=== PATIENT | female | born 1990 | race Caucasian/White ===

== ENCOUNTER → 2017-09-30 13:37 | Outpatient (CLI) | payer BC ==
[~2017-09-30 13:37] MED LIST: ACETAMINOPHEN500 M1 PO; PHENAZOPYRIDIN100 MG PO; PROZAC20 MG PO; SPRINTEC1 TAB PO
[2017-12-01 18:29] VITALS: BMI 41.8
== END | disposition home or self-care (01) ==
LOC: D.CT 13:37
DX: R10.9 Unspecified abdominal pain (principal); D72.829 Elevated white blood cell count, unspecified

== ENCOUNTER 2017-12-01 13:28 | Inpatient (IN) | payer BC ==
[~2017-12-01] VITALS: Ht 157.5 cm; Wt 103.6 kg
--- NOTE | ~2017-12-01 | OP ---
PATIENT NAME: ЮЛИЯ PRATT MEDICAL RECORD: [id number] :88 LOCATION:D.M2 D.2113 ADMISSION DATE:12/01/17 SURGEON: LARON DAWSON MD DATE OF OPERATION: 12/01/2017 SURGEON: Laron Dawson MD ANESTHESIA: General anesthesia. ANESTHESIOLOGIST: Mynor Babin CRNA. PREOPERATIVE DIAGNOSIS: Right distal ureteral 4 mm stone. POSTOPERATIVE DIAGNOSIS: Right distal ureteral 4 mm stone. PROCEDURES: Cystoscopy, right retrograde pyelogram, right ureteroscopy and stone extraction, right ureteral stent insertion 6-Austrian x 22 cm with string attached. FINDINGS: Right distal ureteral 4 mm stone. BLOOD LOSS: None. CLINICAL HISTORY: This is a 27-year-old female who has no prior history of kidney stones. She developed right renal colic 4 days ago. She went to the Emergency Room at [facility] and a CT scan was performed. This showed a 4-mm stone lodged in the right UV junction causing proximal hydroureteronephrosis. She was admitted for pain control and now she will be having a right ureteral stone extraction. SHE IS ALLERGIC TO IODINE AND CODEINE. Because of her ALLERGY TO IODINE-BASED SUBSTANCES, we prepped her with castile soap. PROCEDURE IN DETAIL: The patient was given 2 grams Ancef IV occupational health physician to the OR. She was then given general anesthetic and then placed in the dorsal lithotomy position. She was prepped and draped. Fluoroscopy did not reveal any radiodense stones. Going into the bladder, the right ureteral orifice was quite inflamed due to lodged stone. Left ureteral orifice is normal. No bladder tumors were seen. An open-ended ureteral catheter was inserted into the right ureteral orifice and diluted contrast was used for retrograde pyelogram. There was severe hydroureteronephrosis all the way down to the UV junction. However, the stone itself could still not be seen very clearly. Through the lumen of the open-ended ureteral catheter, we inserted a Sensor wire up into the renal pelvis. Once the wire was in place, we removed the ureteral catheter entirely. Over the wire, we placed a UroMax 18-Austrian 4 cm long ureteral dilation balloon. We tried to inflate the balloon. The balloon was ruptured by the impacted stone. However, the balloon had managed to dilate the ureteral orifice sufficiently for our purposes. The balloon was entirely removed. The cystoscope was then removed leaving the guidewire in place. We used a rigid ureteroscope and going adjacent to the wire, just in the intramural portion of the ureter, we identified the stone. A 1.9-Austrian 4-wire 0-tip basket was placed around the stone and the stone was entirely removed. It will be sent to pathology for stone analysis. I did perform ureteroscopy up to the ureteropelvic junction. No other stones were seen. The ureteroscope was then removed. The wire was placed back into the cystoscope. Over the wire, we inserted a 6-Austrian x 22 cm ureteral stent. Once the stent was in correct OPERATIVE REPORT [id number] ЮЛИЯ PRATT position, the wire was entirely withdrawn. This allowed the proximal end to coil within the renal pelvis. The distal end was pushed entirely into the bladder using the pusher. The string on the distal end of stent is maintained and it hangs out of the urethra. The bladder was emptied entirely through the scope and then the scope was removed. The string was taped to the suprapubic area using a small piece of Tegaderm. The patient will be sent home with a prescription for Toradol 10 mg p.o. q.6 hours p.r.n., 30 tablets with no refills and tamsulosin 0.4 mg p.o. q.h.s. times 3 with no refills. I will see her in followup at the end of the week in order to remove the stent by pulling on the string. TRANSINT:[id number] Voice Confirmation ID: [id number] DOCUMENT ID: [id number] LARON DAWSON MD at 0956 CC: [id number] DICTATION DATE: 12/01/17 2339 R&D ENGINEER: 12/02/17 0801 ADM IN [place] [id number] [place] [address]
--- NOTE | ~2017-12-01 | HP ---
PATIENT: ЮЛИЯ PRATT MEDICAL RECORD: [id number] ACCOUNT: [id number] LOCATION:D. D.2113 : 88 ADMISSION DATE: 12/01/17 HISTORY AND PHYSICAL EXAMINATION CHIEF COMPLAINT: Right flank pain and unable to void. HISTORY OF PRESENT ILLNESS: The patient is a 27-year-old 2 female who states that 4 days prior to admission, she had onset of some right flank pain and vomiting. She went to a walk-in clinic where she was noted to have microscopic hematuria. She was given an antibiotic and sent home. She became worse the following day and she went to [facility] ED. She was seen late at night. A CT scan showed a distal 4 mm stone with mild hydronephrosis. She was given some pain medicine, which made her vomit and told to go home and try to pass the stone over the weekend. She did not and arrived in our office this morning seeing my nurse practitioner with increasing flank pain and vomiting and states she cannot void. She said they did place a Miller in the Emergency Room and she had some minimal urinary output. She denies fever. PAST MEDICAL HISTORY: 1. depression. 2. 2. 3. History of stomach ulcer. 4. Allergic rhinitis. SURGICAL HISTORY: Laparoscopic cholecystectomy, tonsillectomy, and times 2. FAMILY HISTORY: Noncontributory. SOCIAL HISTORY: Nonsmoker, nondrinker. She is , with 2 children at home. HOME MEDICATIONS: 1. Sprintec 1 daily. 2. Prozac 20 mg daily. REVIEW OF SYSTEMS: GENERAL: She has felt bad for the last 4 days. No fever. HEENT: No recent visual change, sinus congestion, or sore throat. RESPIRATORY: No severe cough. CARDIAC: No chest pain, claudication, or edema. GASTROINTESTINAL: Nausea with some vomiting and loose stools for the last 2 days. ENDOCRINE: Denies polyuria, polydipsia, heat or cold intolerance. GENITOURINARY: She says she is having trouble voiding, says she has not urinated for the last 12 hours. She is having severe flank pain that is unrelenting causing nausea. She has not noticed any recent blood in her urine since the weekend. PSYCHIATRIC: Admits to depressed mood, but has improved on her antidepressants. Denies suicidal thoughts. INTEGUMENT: No rash or itching. PHYSICAL EXAMINATION: VITAL SIGNS: Her weight is 248 pounds, height 61 inches, BMI is 46.9, HISTORY AND PHYSICAL [id number] ЮЛИЯ PRATT temperature is 99 degrees Fahrenheit, blood pressure 122/82 with heart rate of 90 and regular. GENERAL: A 27-year-old 2-2-02 female who is in obvious distress due to pain and she is tearful. HEENT: Unremarkable. NECK: Supple. CHEST: Clear. HEART: Tachycardic without murmur. ABDOMEN: Soft, obese, and nontender. Right flank is tender to deep palpation. Bowel sounds are active. EXTREMITIES: No CC&E. NEUROLOGICAL: She is oriented times 3. Cranial nerves intact. Gait is normal. PSYCHIATRIC: Mildly depressed mood. LABORATORY DATA AND DIAGNOSTIC STUDIES: Labs are pending, but she had microscopic hematuria at [facility] over the weekend, white count 11,000. CT showed a distal 4-mm stone with mild enlargement of the right kidney with hydronephrosis and hydroureter. This stone is located at the ureterovesicular junction. ASSESSMENT: 1. Right ureterovesicular stone with hydronephrosis and hydroureter. 2. Nausea and vomiting secondary to pain. PLAN: The patient was given Demerol and Phenergan IM in the office. Her will transfer her to [place] for direct admission as there are no beds at [facility]. I have called Dr. Robert from urology who will see the patient as well. TRANSINT:[id number] Voice Confirmation ID: [id number] DOCUMENT ID: [id number] BRADLEY JOHNSON MD at 2130 CC: [id number] DICTATION DATE: 12/01/17 1257 INFORMATICS SPECIALIST: 12/01/17 1406 DIS IN 12/02/17 [facility] [address] [place] [id number]
[2017-12-01 17:16] LABS: BASOPHILS 0.1 % (0-2); EOSINOPHILS 0.6 % (0-7); HEMOGLOBIN 13.7 g/dL (12-16); IMMATURE GRANULOCYTES 0.4 % (0-5); LYMPHOCYTES 10.7 % (15-50); MCH 29.9 pg (26.0-34.0); MCHC 34.3 g/dL (31.0-37.0); MCV 87.3 fL (80.0-100.0); MEAN PLATELET VOLUME 9.1 fL (7.4-10.4); MONOCYTES 4.4 % (2-11); NEUTROPHILS 83.8 % (40-80); PLATELET COUNT 283 10x3/uL (130-400); RBC 4.58 10x6/uL (4.00-5.40); RDW 12.8 % (11.5-14.5); WBC 17.4 10x3/uL (4.8-10.8)
[2017-12-01 17:29] LABS: ANION GAP 13.5 mmol/L (8-16); CALCIUM 8.6 mg/dL (8.5-10.1); CARBON DIOXIDE 26.6 mmol/L (21.0-32.0); CREATININE - SERUM 1.1 mg/dL (0.6-1.3); POTASSIUM - SERUM 4.1 mmol/L (3.5-5.1)
[2017-12-01] MEDS ORDERED: PROZAC20 MG PO (17:50)
[2017-12-01] MEDS ORDERED: SPRINTEC1 TAB PO (17:51)
[2017-12-01 17:57] VITALS: BP 159/92; BMI 41.8
[2017-12-01 18:29] VITALS: Ht 157.5 cm; Wt 103.6 kg
[2017-12-01 20:19] LABS: APPEARANCE CLEAR (CLEAR); BILIRUBIN NEGATIVE (NEGATIVE); COLOR YELLOW (YELLOW); GLUCOSE NEGATIVE (NEGATIVE); KETONE SMALL mg/dL (NEGATIVE); NITRITE NEGATIVE (NEGATIVE); PROTEIN NEGATIVE (NEGATIVE); SPECIFIC GRAVITY 1.025 (1.005-1.020); UROBILINOGEN NORMAL (NORMAL)
[2017-12-01 21:32] VITALS: BP 147/89
[2017-12-02 06:05] VITALS: BP 104/55
[2017-12-02] MEDS ORDERED: ACETAMINOPHEN500 M1 PO (08:13)
[2017-12-02] MEDS ORDERED: PHENAZOPYRIDIN100 MG PO (08:13)
[2017-12-02 08:29] VITALS: BP 115/63
[2017-12-02 12:30] VITALS: BP 112/58
[2017-12-10 16:14] LABS: CALCULI - CA OXALATE DIHYDRATE 30 % (()); CALCULI - CA OXALATE MONOHYDR 60 % (()); CALCULI - CALCIUM PHOSPHATE 10 % (()); CALCULI - COLOR Tan (()); CALCULI - SIZE 3x2x1 mm (())
== END 2017-12-02 14:24 | disposition home or self-care (01) | DRG 670 ==
LOC: D.M2 13:28 → D.SDCHOLD 13:28 → D.M2 16:23
PROVIDERS: Family Medicine; Urology
PROC: BT1D1ZZ Fluoroscopy of Right Kidney, Ureter and Bladder using Low Osmolar Contrast (ICD-10-PCS; principal; 2017-12-01 23:00)
PROC: 0TC68ZZ Extirpation of Matter from Right Ureter, Via Natural or Artificial Opening Endoscopic (ICD-10-PCS; 2017-12-01 23:00)
PROC: 0T768DZ Dilation of Right Ureter with Intraluminal Device, Via Natural or Artificial Opening Endoscopic (ICD-10-PCS; 2017-12-01 23:00)
DX: N20.1 Calculus of ureter (principal)

== ENCOUNTER 2018-08-17 08:01 | Emergency (ER) | payer BC ==
[~2018-08-17] VITALS: Ht 157.5 cm; Wt 105.0 kg
[2018-08-17 08:06] VITALS: Ht 157.5 cm; Wt 105.0 kg
[2018-08-17] MEDS ORDERED: ZOFRAN4 MG PO (08:09)
[2018-08-17 08:53] LABS: HEMATOCRIT 40.5 % (36.0-48.0); HEMOGLOBIN 14.2 g/dL (12-16); LYMPHOCYTES 21.6 % (15-50); MCH 29.6 pg (26.0-34.0); MCHC 35.1 g/dL (31.0-37.0); MCV 84.4 fL (80.0-100.0); MEAN PLATELET VOLUME 8.8 fL (7.4-10.4); NEUTROPHILS 72.4 % (40-80); PLATELET COUNT 337 10x3/uL (130-400); RDW 12.8 % (11.5-14.5); WBC 13.7 10x3/uL (4.8-10.8)
[2018-08-17 09:00] LABS: ALBUMIN 3.1 g/dL (3.4-5.0); ALKALINE PHOSPHATASE 75 U/L (46-116); ALT (SGPT) 20 U/L (10-68); AMYLASE - SERUM 63 U/L (25-115); BILIRUBIN - TOTAL 0.61 mg/dL (0.2-1.3); CALC OSMOLALITY 274 mosm/kg (275-300); CALCIUM 8.8 mg/dL (8.5-10.1); CARBON DIOXIDE 26.1 mmol/L (21.0-32.0); CHLORIDE - SERUM 104 mmol/L (98-107); CREATININE - SERUM 0.8 mg/dL (0.6-1.3); GLUCOSE 109 mg/dL (74-106); LIPASE 231 U/L (73-393); PROTEIN - SERUM 7.2 g/dL (6.4-8.2); SODIUM 137 mmol/L (136-145); UREA NITROGEN 13 mg/dL (7-18); eGFR NON AFRICAN AMERICAN 89 mL/min (90-120)
[2018-08-17 09:01] LABS: POTASSIUM - SERUM 4.5 mmol/L (3.5-5.1)
[2018-08-17 09:07] LABS: APPEARANCE HAZY (CLEAR); BILIRUBIN NEGATIVE (NEGATIVE); COLOR YELLOW (YELLOW); GLUCOSE NEGATIVE (NEGATIVE); KETONE SMALL mg/dL (NEGATIVE); NITRITE NEGATIVE (NEGATIVE); PROTEIN NEGATIVE (NEGATIVE); SPECIFIC GRAVITY 1.025 (1.005-1.020); UROBILINOGEN NORMAL (NORMAL)
[2018-08-17] MEDS ORDERED: FLAGYL500 MG PO (12:19)
[2018-08-17] MEDS ORDERED: LEVAQUIN250 MG PO (12:20)
[2018-08-17] MEDS ORDERED: PROTONIX40 MG PO (12:21)
[2018-08-17 14:07] VITALS: BP 118/71
== END 2018-08-17 13:38 | disposition home or self-care (01) ==
LOC: D.ER 08:01
PROVIDERS: Emergency Medicine
DX: R10.9 Unspecified abdominal pain (principal); K29.70 Gastritis, unspecified, without bleeding; K58.9 Irritable bowel syndrome, unspecified; R11.10 Vomiting, unspecified

== ENCOUNTER 2020-07-09 13:54 | Emergency (ER) | payer BC ==
[~2020-07-09] VITALS: Ht 157.5 cm; Wt 118.2 kg
[~2020-07-09 13:54] MED LIST changes: +FLAGYL500 MG PO; +LEVAQUIN250 MG PO; +PROTONIX40 MG PO; +ZOFRAN4 MG PO
[2020-07-09 14:06] VITALS: Ht 157.5 cm; Wt 118.2 kg
[2020-07-09] MEDS ORDERED: NORCO 7.5-3251 EACH (14:10)
[2020-07-09] MEDS ORDERED: TOPAMAX50 MG (14:10)
[2020-07-09] MEDS ORDERED: CELEXA10 MG (14:10)
[2020-07-09] MEDS ORDERED: GABAPENTIN100 MG (14:10)
[2020-07-09] MEDS ORDERED: VOLTAREN75 MG PO (15:02)
[2020-07-09] MEDS ORDERED: ZOFRAN ODT4 MG/UDTAB PO (15:02)
[2020-07-09] MEDS ORDERED: TALWIN NX1 TAB PO (15:02)
[2020-07-09 15:50] VITALS: BP 122/62
== END 2020-07-09 15:53 | disposition home or self-care (01) ==
LOC: D.ER 13:54
DX: L29.9 Pruritus, unspecified (principal); T40.2X5A Adverse effect of other opioids, initial encounter; G89.18 Other acute postprocedural pain; Z47.89 Encounter for other orthopedic aftercare

== ENCOUNTER 2021-01-17 20:54 | Emergency (ER) | payer BC ==
[~2021-01-17] VITALS: Ht 157.5 cm; Wt 120.5 kg
[~2021-01-17 20:54] MED LIST changes: +CELEXA10 MG; +GABAPENTIN100 MG; +NORCO 7.5-3251 EACH; +TALWIN NX1 TAB PO; +TOPAMAX50 MG; +VOLTAREN75 MG PO; +ZOFRAN ODT4 MG/UDTAB PO
[2021-01-17 21:01] VITALS: Ht 157.5 cm; Wt 120.5 kg
[2021-01-17 21:33] LABS: BASOPHILS 0.2 % (0-2); EOSINOPHILS 2.9 % (0-7); HEMATOCRIT 42.9 % (36.0-48.0); HEMOGLOBIN 14.6 g/dL (12-16); IMMATURE GRANULOCYTES 0.5 % (0-5); LYMPHOCYTE ABS# 4.74 10x3/uL (1.18-3.74); LYMPHOCYTES 28.8 % (15-50); MCH 29.7 pg (26.0-34.0); MCV 87.4 fL (80.0-100.0); MEAN PLATELET VOLUME 8.9 fL (7.4-10.4); MONOCYTES 5.6 % (2-11); NEUTROPHIL ABS# 10.22 10x3/uL (1.56-6.13); PLATELET COUNT 316 10x3/uL (130-400); RBC 4.91 10x6/uL (4.00-5.40); RDW 13.2 % (11.5-14.5); WBC 16.5 10x3/uL (4.8-10.8)
[2021-01-17 21:34] LABS: CALCIUM 8.8 mg/dL (8.5-10.1); CARBON DIOXIDE 24.7 mmol/L (21.0-32.0); POTASSIUM - SERUM 3.7 mmol/L (3.5-5.1)
[2021-01-17 21:37] LABS: BILIRUBIN NEGATIVE (NEGATIVE); HCG URINE NEGATIVE (NEGATIVE); KETONE NEGATIVE (NEGATIVE); NITRITE NEGATIVE (NEGATIVE); UROBILINOGEN NORMAL mg/dL (< 2)
[2021-01-17 21:40] LABS: ALBUMIN 3.2 g/dL (3.4-5.0); BILIRUBIN - TOTAL 0.23 mg/dL (0.2-1.3); PROTEIN - SERUM 7.1 g/dL (6.4-8.2)
[2021-01-17 21:43] LABS: BACTERIA MODERATE HPF (NONE SEEN); SQUAMOUS EPITHELIAL 0-5 HPF (0-4); WHITE CELLS - URINE OCC HPF (0-4)
[2021-01-18] MEDS ORDERED: FLOMAX0.4 MG PO (00:47)
[2021-01-18] MEDS ORDERED: PERCOCET 7.5/321 TAB PO (00:47)
[2021-01-18 01:15] VITALS: BP 145/76
== END 2021-01-18 01:15 | disposition home or self-care (01) ==
LOC: D.ER 20:54
PROVIDERS: Family Medicine
DX: N20.1 Calculus of ureter (principal); R10.31 Right lower quadrant pain